=== PATIENT | female | born 1975 | race Caucasian/White ===

== ENCOUNTER 2016-11-01 20:00 | Emergency (ER) | payer SELFPAY | END 2016-11-01 22:10 | disposition home or self-care (01) | LOC: ER1 20:00 | DX: S66.211A Strain of extensor muscle, fascia and tendon of right thumb at wrist and hand level, initial encounter (principal); S66.011A Strain of long flexor muscle, fascia and tendon of right thumb at wrist and hand level, initial encounter; I10 Essential (primary) hypertension; J45.909 Unspecified asthma, uncomplicated; Z88.0 Allergy status to penicillin; Z88.6 Allergy status to analgesic agent; F17.210 Nicotine dependence, cigarettes, uncomplicated; X58.XXXA Exposure to other specified factors, initial encounter; Y92.009 Unspecified place in unspecified non-institutional (private) residence as the place of occurrence of the external cause; Z79.899 Other long term (current) drug therapy | CPT/HCPCS: 73100; 73130; 99283 ==

== ENCOUNTER 2021-01-19 15:20 | Emergency (ER) | payer OTHER | END 2021-01-19 17:25 | disposition home or self-care (01) | LOC: ER1 15:20 | DX: S93.602A Unspecified sprain of left foot, initial encounter (principal); E11.9 Type 2 diabetes mellitus without complications; I10 Essential (primary) hypertension; Z90.49 Acquired absence of other specified parts of digestive tract; Z90.10 Acquired absence of unspecified breast and nipple; Z88.0 Allergy status to penicillin; Z88.6 Allergy status to analgesic agent; X58.XXXA Exposure to other specified factors, initial encounter | CPT/HCPCS: 73630; 99283 ==